=== PATIENT | female | born 1990 | race Caucasian/White ===

== ENCOUNTER 2017-06-02 17:37 | Emergency (ER) | payer MEDICAID ==
[~2017-06-02] VITALS: Ht 160 cm; Wt 98.1 kg
[~2017-06-02 17:37] MED LIST: ALBU0.0939 IH; BECL0.089 IH; FLUT1DSK2 IH; PRON INH
[2017-06-02 17:42] VITALS: BP 127/76
--- NOTE | 2017-06-02 18:24 | NUR ---
Patient ambulated to bed 5. RN evaluating patient at bedside.
[2017-06-02] MEDS ORDERED: ALBUTEROL 0.083% 2.5 MG/3 ML NEBU INH ONE ×2 (18:25→18:30)
[2017-06-02] MEDS ORDERED: IPRATROPIUM 0.02% 0.5 MG/2.5 ML NEBU INH ONE ×2 (18:25→18:30)
[2017-06-02] MEDS ORDERED: methylPREDNISolone SS 125 MG/2 ML VIAL IVP ONE (18:25)
[2017-06-02] MEDS ORDERED: MAG SULF 2000 MG/WATER PREMIX 50 ML IV ONE (18:25)
--- NOTE | 2017-06-02 18:30 | NUR ---
26F BIB SELF C/O ASTHMA EXACERBATION WITH COUGH X 2 WEEKS. HX: ASTHMA RX: QVAR, ALBUTEROL. DENIES N/V/D; SKIN IS PINK/WARM/DRY; AAOX4 WITH EVEN AND STEADY GAIT; LUNGS WHEEZING BL; PT DENIES ANY FEVER, CP, OR COUGH AT THIS TIME; PATIENT STATES HEADACHE ;PAIN OF 7/10 AT THIS TIME; PATIENT POSITIONED FOR COMFORT; HOB ELEVATED; BEDRAILS UP X2; BED DOWN. ER MD MADE AWARE OF PT STATUS.
--- NOTE | 2017-06-02 18:40 | NUR ---
Breathing treatment administered at bedside by respiratory therapist.
--- NOTE | 2017-06-02 19:19 | NUR ---
GAVE REPORT TO NATE RANGEL.
--- NOTE | 2017-06-02 19:23 | NUR ---
report received from glenroy cody
--- NOTE | 2017-06-02 19:34 | NUR ---
Respiratory Therapist at bedside for respiratory intervention.
--- NOTE | 2017-06-02 20:08 | NUR ---
DR. TEJEDA MAGNESIUM STILL ONGOING
--- NOTE | 2017-06-02 20:11 | NUR ---
magnesium sulfate infusing without problems. no c/o pain at this time. no resp. distress noted.
[2017-06-02 20:31] VITALS: BP 111/65
--- NOTE | 2017-06-02 20:31 | NUR ---
Patient discharged with v/s stable. Written and verbal after care instructions given and explained. Patient alert, oriented and verbalized understanding of instructions. Ambulatory with steady gait. All questions addressed prior to discharge. ID band removed. Patient advised to follow up with PMD. Rx of zithromax, prednisone and albuterol given. Patient educated on indication of medication including possible reaction and side effects. Opportunity to ask questions provided and answered.
== END 2017-06-02 20:31 | disposition home or self-care (01) ==
LOC: MED 17:37
DX: J44.1 Chronic obstructive pulmonary disease with (acute) exacerbation (principal); J45.901 Unspecified asthma with (acute) exacerbation; R03.0 Elevated blood-pressure reading, without diagnosis of hypertension; Z88.6 Allergy status to analgesic agent
CPT/HCPCS: 94640; 96365; 96366; 96375; 99285; J2930; J3475; J7613; J7644

== ENCOUNTER 2017-06-11 12:58 | Emergency (ER) | payer MEDICAID ==
[~2017-06-11] VITALS: Ht 162.6 cm; Wt 99.1 kg
[2017-06-11 13:05] VITALS: BP 114/61
[2017-06-11] MEDS ORDERED: ALBUTEROL SULFATE/IPRATROPIU 3 ML SOL IH ONE (13:15)
[2017-06-11] MEDS ORDERED: ALBUTEROL 0.083% 2.5 MG/3 ML NEBU INH ONE (13:15)
[2017-06-11] MEDS ORDERED: predniSONE 20 MG TAB PO ONE (13:15)
--- NOTE | 2017-06-11 13:25 | NUR ---
PT ON MED NEB TX VIA MP GIVEN BY LUCIA VILLANUEVA
--- NOTE | 2017-06-11 13:26 | NUR ---
PATIENT PRESENTS TO ED WITH c/o sob during night x 4 days---dry cough--full clear speech, no accessory muscle use noted at this time. seen in May 15June 02 asthma exacerbation hx---asthma rx----albuterol, Qvar 80, zyrtec DENIES N/V/D; SKIN IS PINK/WARM/DRY; AAOX4 WITH EVEN AND STEADY GAIT; LUNGS BL EXP WHZ; HR EVEN AND REGULAR; PT DENIES ANY FEVER, CP, OR COUGH AT THIS TIME; PATIENT STATES PAIN OF 0/10 AT THIS TIME; VSS; PATIENT POSITIONED FOR COMFORT; HOB ELEVATED; BEDRAILS UP X2; BED DOWN. ER MD MADE AWARE OF PT STATUS.
--- NOTE | 2017-06-11 13:28 | NUR ---
DR CARLOS EVALUATING AAO PT AT BEDSIDE
[2017-06-11 13:41] VITALS: BP 121/71
== END 2017-06-11 13:41 | disposition home or self-care (01) ==
LOC: MED 12:58
DX: J45.901 Unspecified asthma with (acute) exacerbation (principal); Z88.6 Allergy status to analgesic agent; Z90.49 Acquired absence of other specified parts of digestive tract
CPT/HCPCS: 81002; 81025; 94640; 99284; J7512; J7613; J7620

== ENCOUNTER 2017-06-29 09:02 | Emergency (ER) | payer OTHER ==
[~2017-06-29] VITALS: Ht 160 cm; Wt 97.5 kg
[2017-06-29 09:04] VITALS: BP 140/79
[2017-06-29] MEDS ORDERED: predniSONE 20 MG TAB PO ONE (09:15)
[2017-06-29] MEDS ORDERED: ALBUTEROL 0.083% 2.5 MG/3 ML NEBU INH ONE (09:15)
[2017-06-29] MEDS ORDERED: ALBUTEROL SULFATE/IPRATROPIU 3 ML SOL IH ONE (09:15)
[2017-06-29 09:47] VITALS: BP 156/77
== END 2017-06-29 09:44 | disposition home or self-care (01) ==
LOC: MED 09:02
DX: J45.901 Unspecified asthma with (acute) exacerbation (principal); Z90.89 Acquired absence of other organs; Z79.899 Other long term (current) drug therapy
CPT/HCPCS: 94640; 99283; J7512; J7613; J7620

== ENCOUNTER 2017-07-21 11:31 | Emergency (ER) | payer OTHER ==
[~2017-07-21] VITALS: Ht 162.6 cm; Wt 101.7 kg
[2017-07-21 11:36] VITALS: BP 110/69
--- NOTE | 2017-07-21 11:45 | NUR ---
PATIENT AMBULATED TO ER BED 8.
[2017-07-21] MEDS ORDERED: predniSONE 20 MG TAB PO ONE (11:50)
[2017-07-21] MEDS ORDERED: ALBUTEROL 0.083% 2.5 MG/3 ML NEBU INH ONE (11:50)
[2017-07-21] MEDS ORDERED: IPRATROPIUM 0.02% 0.5 MG/2.5 ML NEBU INH ONE (11:50)
--- NOTE | 2017-07-21 11:50 | NUR ---
PATIENT PRESENTS TO ED WITH C/O ASTHMA EXACERBATION X MAY 15, 2017 ON AND OFF LAST VISIT 06/29/2017 HERE----LAST PMD 07/09/2017 FOR ASTHMA EXACERBATION HX---ASTHMA, RX---ALBUTEROL, QVAR; DENIES N/V/D; SKIN IS PINK/WARM/DRY; AAOX4 WITH EVEN AND STEADY GAIT; LUNGS EXP WHEEZE BL; HR EVEN AND REGULAR; PT DENIES ANY FEVER, CP, SOB, OR COUGH AT THIS TIME; PATIENT STATES PAIN OF 0/10 AT THIS TIME; VSS; PATIENT POSITIONED FOR COMFORT; HOB ELEVATED; BEDRAILS UP X2; BED DOWN. ER MD MADE AWARE OF PT STATUS.
--- NOTE | 2017-07-21 11:50 | NUR ---
PATIENT BEING EVALUATED BY DR. REYNA.
[2017-07-21 13:12] VITALS: BP 112/71
== END 2017-07-21 13:12 | disposition home or self-care (01) ==
LOC: MED 11:31
DX: J45.901 Unspecified asthma with (acute) exacerbation (principal); Z88.6 Allergy status to analgesic agent
CPT/HCPCS: 94640; 99283; J7512; J7613; J7644

== ENCOUNTER 2017-07-25 10:01 | Emergency (ER) | payer OTHER ==
[~2017-07-25] VITALS: Ht 160 cm; Wt 102.6 kg
[2017-07-25 10:05] VITALS: BP 124/75
--- NOTE | 2017-07-25 10:08 | NUR ---
Patient ambulated to bed 5. RN evaluating patient at bedside.
--- NOTE | 2017-07-25 10:10 | NUR ---
26F BIB SELF C/O DIFFICULTY BREATHING X 2 WEEKS. HX: ASTHMA . DENIES N/V/D; SKIN IS PINK/WARM/DRY; AAOX4 WITH EVEN AND STEADY GAIT; LUNGS EXP WHEEZE BL; HR EVEN AND REGULAR; PT DENIES ANY FEVER, CP, SOB, OR COUGH AT THIS TIME; PATIENT STATES PAIN OF 0/10 AT THIS TIME; VSS; PATIENT POSITIONED FOR COMFORT; HOB ELEVATED; BEDRAILS UP X2; BED DOWN. ER MD MADE AWARE OF PT STATUS.
[2017-07-25] MEDS ORDERED: predniSONE 20 MG TAB PO ONE (10:15)
[2017-07-25] MEDS ORDERED: ALBUTEROL 0.083% 2.5 MG/3 ML NEBU INH ONE (10:15)
[2017-07-25] MEDS ORDERED: ALBUTEROL SULFATE/IPRATROPIU 3 ML SOL IH ONE (10:15)
--- NOTE | 2017-07-25 10:20 | NUR ---
Breathing treatment administered by respiratory therapist at bedside.
--- NOTE | 2017-07-25 10:23 | NUR ---
ADMITTING DX: DIFFICULTY BREATHING C/O SOB HX: ASTHMA AWAKE AND ALERT RESPONSIVE TO CABINET PROFESSIONAL VERBAL COMMANDS HFW POSITION EDUCATION PROVIDED TO PATIENT WITH ACKNOWLEDGEMENT ON [facility]N THERAPY AND RESPIRATORY DRUGS [facility] THERAPY GIVEN ORDERED ENCOURAGED PATIENT FOR DEEP BREATHING DURING THERAPY TOLERATED THERAPY WELL WITHOUT ADVERSE REACTIONS NOTED PEAK FLOW BEFORE TX 230 L; AFTER TX 330 L
--- NOTE | 2017-07-25 10:24 | NUR ---
Dr. James evaluating patient at bedside.
[2017-07-25 10:50] VITALS: BP 116/86
== END 2017-07-25 10:50 | disposition home or self-care (01) ==
LOC: MED 10:01
DX: J45.901 Unspecified asthma with (acute) exacerbation (principal); Z90.49 Acquired absence of other specified parts of digestive tract; Z79.899 Other long term (current) drug therapy
CPT/HCPCS: 94640; 99283; J7512; J7613; J7620

== ENCOUNTER 2017-08-08 20:58 | Emergency (ER) | payer OTHER ==
[~2017-08-08] VITALS: Ht 162.6 cm; Wt 104.4 kg
[2017-08-08 21:03] VITALS: BP 144/72
--- NOTE | 2017-08-08 21:54 | NUR ---
PT AMBULATED TO ER BED 08
--- NOTE | 2017-08-08 22:00 | NUR ---
Patient being evaluated by physician at bedside.
--- NOTE | 2017-08-08 22:00 | NUR ---
26Y/F PT. PRESNTES TO ED WITH C/O SORE THROAT X 1 DAY. PT. HX. ASTHMA, HAVING SORE THROAT, COUGH, LOW FEVER. AAO X4, AMBULATORY WITH STEADY GAIT. RESPIRATIONS ROOM AIR, EVEN AND UNLABORED. BL LUNG WHEEZING, O2 SAT 100%. ER MD MADE AWARE. C/O SORE THROAT. VSS, NO S/SX OF DISTRESS AT THIS TIME.
[2017-08-08] MEDS ORDERED: ALBUTEROL SULFATE/IPRATROPIU 3 ML SOL IH ONE (22:25)
[2017-08-08] MEDS ORDERED: DEXAMETHASONE 10 MG/ML VIAL IM ONE (22:25)
--- NOTE | 2017-08-08 23:00 | NUR ---
Patient discharged with v/s stable. Written and verbal after care instructions given and explained. Patient alert, oriented and verbalized understanding of instructions. Ambulatory with steady gait. All questions addressed prior to discharge. ID band removed. Patient advised to follow up with PMD. Rx of AUGMENTIN 875 MG, PREDNISONE 50 MG given. Patient educated on indication of medication including possible reaction and side effects. Opportunity to ask questions provided and answered.
[2017-08-08 23:16] VITALS: BP 153/93
== END 2017-08-08 23:00 | disposition home or self-care (01) ==
LOC: MED 20:58
DX: J45.901 Unspecified asthma with (acute) exacerbation (principal); Z88.6 Allergy status to analgesic agent
CPT/HCPCS: 81002; 81025; 94640; 96372; 99283; J1100; J7620

== ENCOUNTER 2018-02-17 20:16 | Emergency (ER) | payer OTHER ==
[~2018-02-17] VITALS: Ht 160 cm; Wt 104.3 kg
[2018-02-17 20:25] VITALS: BP 118/99
--- NOTE | 2018-02-17 20:31 | NUR ---
PT AMBULATED TO ER CHAIR C
--- NOTE | 2018-02-17 20:35 | NUR ---
Pt presents to ED with MCMANUS x1 day exacerbated by cough and cough x3 days with SOB. Pt evaluated upon ED arrival by Dr. Hui. Respiratory at chair side. VSS. Continue to monitor.
--- NOTE | 2018-02-17 20:36 | NUR ---
Patient being evaluated by physician at bedside.
[2018-02-17] MEDS ORDERED: ALBUTEROL SULFATE/IPRATROPIU 3 ML SOL IH ONE (20:40)
[2018-02-17] MEDS ORDERED: methylPREDNISolone SS 125 MG/2 ML VIAL IM ONE (20:40)
[2018-02-17] MEDS ORDERED: ALBUTEROL 0.083% 2.5 MG/3 ML NEBU INH ONE (21:05)
[2018-02-17] MEDS ORDERED: ACETAMINOPHEN EXTRA STRENGTH 500 MG TAB PO ONE (21:05)
[2018-02-17] MEDS ORDERED: PROCHLORPERAZINE 5 MG TAB PO ONE (21:10)
[2018-02-17 21:54] VITALS: BP 118/99
--- NOTE | 2018-02-17 21:54 | NUR ---
Patient discharged with v/s stable with decreased pain and no SOB. Written and verbal after care instructions given and explained. Patient alert, oriented and verbalized understanding of instructions. Ambulatory with steady gait. All questions addressed prior to discharge. ID band removed. Patient advised to follow up with PMD. Rx of Prednisone given. Patient educated on indication of medication including possible reaction and side effects. Opportunity to ask questions provided and answered.
== END 2018-02-17 21:54 | disposition home or self-care (01) ==
LOC: MED 20:16
DX: J45.901 Unspecified asthma with (acute) exacerbation (principal); R51 Headache; Z79.899 Other long term (current) drug therapy
CPT/HCPCS: 81002; 81025; 94640; 96372; 99284; J2930; J7613; J7620; Q0163; Q0164

== ENCOUNTER 2018-04-29 10:39 | Emergency (ER) | payer OTHER ==
[~2018-04-29] VITALS: Ht 162.6 cm; Wt 107.0 kg
[2018-04-29 10:48] VITALS: BP 119/74
--- NOTE | 2018-04-29 10:55 | NUR ---
Patient to rm 7 with steady gait. Gave report to Inderjit SULLIVAN.
--- NOTE | 2018-04-29 10:56 | NUR ---
27/F BIB SELF with c/o sob and dry, hacking cough x 2 wks.PT WENT TO ER [facility] 2 DAYS AGO & GOT COUGH MED.PT STATEED " MED DOES'T HELP".hx: asthmarx. DENIES N/V/D; SKIN IS PINK/WARM/DRY; AAOX4 WITH EVEN AND STEADY GAIT; LUNGS WHEEZING BL.HR TACHY. PATIENT STATES PAIN OF 0/10 AT THIS TIME. PATIENT POSITIONED FOR COMFORT; HOB ELEVATED; BEDRAILS UP X2; BED DOWN. ER MD MADE AWARE OF PT STATUS.
--- NOTE | 2018-04-29 11:02 | NUR ---
Patient being DR DOUGLAS by physician at bedside.
[2018-04-29] MEDS ORDERED: ALBUTEROL SULFATE/IPRATROPIU 3 ML SOL IH ONE (11:05)
[2018-04-29] MEDS ORDERED: CLINDAMYCIN 600 MG/4 ML VIAL IM ONE (11:05)
[2018-04-29] MEDS ORDERED: DEXAMETHASONE 10 MG/ML VIAL IM ONE (11:05)
[2018-04-29 12:48] VITALS: BP 119/66
--- NOTE | 2018-04-29 12:48 | NUR ---
Patient discharged with v/s stable. Written and verbal after care instructions given and explained. Patient alert, oriented and verbalized understanding of instructions. Ambulatory with steady gait. All questions addressed prior to discharge. ID band removed. Patient advised to follow up with PMD. Rx of PREDNISONE, CLINDAMYCIN& ALBUTEROL given. Patient educated on indication of medication including possible reaction and side effects. Opportunity to ask questions provided and answered.
== END 2018-04-29 12:48 | disposition home or self-care (01) ==
LOC: MED 10:39
DX: J44.9 Chronic obstructive pulmonary disease, unspecified (principal); J32.9 Chronic sinusitis, unspecified; Z88.8 Allergy status to other drugs, medicaments and biological substances
CPT/HCPCS: 81002; 81025; 94640; 96372; 99284; J1100; J3490; J7620

== ENCOUNTER 2018-05-11 04:36 | Emergency (ER) | payer OTHER ==
[~2018-05-11] VITALS: Ht 162.6 cm; Wt 107.7 kg
[2018-05-11 04:40] VITALS: BP 128/71
--- NOTE | 2018-05-11 04:40 | NUR ---
PATIENT TRIAGED. SENT TO ER LOBBY.
--- NOTE | 2018-05-11 05:37 | NUR ---
PATIENT PRESENTS TO ED WITH PT C/O OF COUGHING AND WHEEZING BILATERAL. PT FEELS TIGHTNESS IN CHEST. TOOK 2 BREATHING TREATMENTS PRIOR TO COMING TO ER. PT IS 1 MONTH . DENIES N/V/D; SKIN IS PINK/WARM/DRY; AAOX4 WITH EVEN AND STEADY GAIT; LUNGS WHEEZING BL; HR EVEN AND REGULAR; PT DENIES ANY FEVER, CP, SOB, OR COUGH AT THIS TIME; PATIENT STATES PAIN OF 0/10 AT THIS TIME; VSS; PATIENT POSITIONED FOR COMFORT; HOB ELEVATED; BEDRAILS UP X2; BED DOWN. ER MD MADE AWARE OF PT STATUS.
--- NOTE | 2018-05-11 05:37 | NUR ---
PT WAS PUT INTO BED 11
--- NOTE | 2018-05-11 07:13 | NUR ---
gave report to karey tim
[2018-05-11] MEDS ORDERED: ALBUTEROL SULFATE/IPRATROPIU 3 ML SOL IH ONE ×2 (07:40→09:10)
--- NOTE | 2018-05-11 07:48 | NUR ---
US tech at bedside.
[2018-05-11 08:05] LABS: BASOPHILS # (AUTO) 0.1 K/uL (0.00-0.22); BASOPHILS % (AUTO) 0.8 % (0.0-2.0); EOSINOPHILS % (AUTO) 7.3 % (0.0-4.0); HEMATOCRIT 39.2 % (36-48); HEMOGLOBIN 13.3 g/dL (12.0-16.0); LYMPHOCYTES # (AUTO) 2.4 K/uL (2.5-16.5); LYMPHOCYTES % (AUTO) 17.7 % (20.5-51.1); MEAN CORPUSCULAR HEMOGLOBIN 29 pg (27-31); MEAN CORPUSCULAR HGB CONC 34 g/dL (33-37); MEAN CORPUSCULAR VOLUME 85.1 fL (80-94); MONOCYTES # (AUTO) 0.9 K/uL (0.8-1.0); MONOCYTES % (AUTO) 6.8 % (1.7-9.3); NEUTROPHILS % (AUTO) 67.4 % (42.2-75.2); PLATELET COUNT (AUTO) 255 K/uL (140-450); RED CELL DISTRIBUTION WIDTH 13.9 % (11.6-13.7); WHITE BLOOD COUNT (AUTO) 13.4 K/uL (4.8-10.8)
[2018-05-11 08:07] LABS: APPEARANCE,URINE CLEAR (CLEAR); BILIRUBIN,URINE NEGATIVE (NEGATIVE); BLOOD, URINE TRACE-I (NEGATIVE); COLOR,URINE YELLOW (YELLOW); LEUKOCYTE ESTERASE ,URINE NEGATIVE (NEGATIVE); NITRITE, URINE NEGATIVE (NEGATIVE); PH,URINE 5.5 (5.0-9.0); UGLUCOSE NEGATIVE (NEGATIVE)
[2018-05-11 08:17] LABS: RBC,URINE 0-5 (RARE) /HPF (0-5); WBC,URINE 0-5 (RARE) /HPF (0-5)
[2018-05-11 08:27] LABS: ANION GAP 16.5 (8-16); CARBON DIOXIDE 22.2 mmol/L (21-32); CREATININE 0.6 mg/dL (0.6-1.3); POTASSIUM 3.7 mmol/L (3.5-5.1)
--- NOTE | 2018-05-11 09:00 | NUR ---
PT RESTING IN BED WITH EVEN AND UNLABORED BREATHING.
--- NOTE | 2018-05-11 10:41 | NUR ---
Patient appears to be resting comfortably in bed. Vital Signs within normal limits. Respirations even and unlabored.
--- NOTE | 2018-05-11 11:10 | NUR ---
PT RECIEVED 1ST DOSE OF RHOGRAM IM GIVEN IN LEFT DELTOID. NO REACTIONS.
[2018-05-11 11:21] VITALS: BP 121/47
--- NOTE | 2018-05-11 11:21 | NUR ---
Patient discharged with v/s stable. Written and verbal after care instructions given and explained. Patient alert, oriented and verbalized understanding of instructions. Ambulatory with steady gait. All questions addressed prior to discharge. ID band removed. Patient advised to follow up with PMD. Rx of ATROVENT given. Patient educated on indication of medication including possible reaction and side effects. Opportunity to ask questions provided and answered.
== END 2018-05-11 11:21 | disposition home or self-care (01) ==
LOC: MED 04:36
DX: O99.511 Diseases of the respiratory system complicating pregnancy, first trimester (principal); J45.901 Unspecified asthma with (acute) exacerbation; R03.0 Elevated blood-pressure reading, without diagnosis of hypertension; Z3A.01 Less than 8 weeks gestation of pregnancy
CPT/HCPCS: 36415; 36430; 76801; 80048; 81001; 81025; 84702; 85025; 86886; 86900; 86901; 94640; 99285; J2790; J7620

== ENCOUNTER 2018-08-31 06:16 | Emergency (ER) | payer OTHER ==
[~2018-08-31] VITALS: Ht 160 cm; Wt 104.3 kg
[2018-08-31 06:16] VITALS: BP 125/72
--- NOTE | 2018-08-31 06:16 | NUR ---
PATIENT BIB WHEELCHAIR TO ER BED 11.
--- NOTE | 2018-08-31 06:16 | NUR ---
27/F C/O ASTHMA X3 DAYS AGO, WORSENED YESTERDAY.I/E WHEEZING NOTED TO ALL LUNG SOUNDS. 98%RA, 16RR EVEN AND MILD LABORED BREATHING. ALSO REPORTS PRODUCIVE COUGH. PT REPORTS TO HAVE BEEN TAKING BREATHING TREATMENTS WITHOUT IMPROVEMENT. IUP 5 MONTHS, . PMH: ASTHMA
[2018-08-31] MEDS ORDERED: ALBUTEROL SULFATE/IPRATROPIU 3 ML SOL IH ONE ×4 (06:20→07:20)
--- NOTE | 2018-08-31 06:38 | NUR ---
Breathing treatment administered at bedside by respiratory therapist.
[2018-08-31] MEDS ORDERED: MAG SULF 2000 MG/WATER PREMIX 50 ML IV ONE ×2 (06:50→07:03)
[2018-08-31] MEDS ORDERED: ALBUTEROL 0.083% 2.5 MG/3 ML NEBU INH ONE ×4 (06:50→08:57)
--- NOTE | 2018-08-31 06:54 | NUR ---
Secondary breathing treatment administered by respiratory therapist.
--- NOTE | 2018-08-31 07:04 | NUR ---
L&D RN PERFOREMED FHR ASSESSSMENT, FHR IN 150'S
--- NOTE | 2018-08-31 07:55 | NUR ---
WAS NOT ABLE TO SCAN PROVENTIL MEDICATION AT THE TIME OF ADMINISTRATION BECAUSE [employer] WAS NOT RESPONDING.
[2018-08-31] MEDS ORDERED: DEXAMETHASONE 10 MG/ML VIAL IVP ONE (08:35)
[2018-08-31] MEDS ORDERED: DEXAMETHASONE 4 MG/ML VIAL ONE (08:39)
[2018-08-31 09:45] VITALS: BP 119/63
--- NOTE | 2018-08-31 09:45 | NUR ---
Patient discharged with v/s stable. Written and verbal after care instructions given and explained. Patient alert, oriented and verbalized understanding of instructions. Ambulatory with steady gait. All questions addressed prior to discharge. ID band removed. Patient advised to follow up with PMD. Rx of qvar, azithromycin, albuterol given. Patient educated on indication of medication including possible reaction and side effects. Opportunity to ask questions provided and answered.
== END 2018-08-31 09:45 | disposition home or self-care (01) ==
LOC: MED 06:16
DX: O99.512 Diseases of the respiratory system complicating pregnancy, second trimester (principal); J45.901 Unspecified asthma with (acute) exacerbation; Z88.6 Allergy status to analgesic agent; Z79.899 Other long term (current) drug therapy; Z3A.21 21 weeks gestation of pregnancy
CPT/HCPCS: 94640; 94760; 96365; 96375; 99285; J1100; J3475; J7613; J7620

== ENCOUNTER 2018-09-04 14:17 | Emergency (ER) | payer OTHER ==
[~2018-09-04] VITALS: Ht 160 cm; Wt 112.9 kg
[2018-09-04 14:23] VITALS: BP 120/71
--- NOTE | 2018-09-04 15:00 | NUR ---
pt ambulated to bed 4
--- NOTE | 2018-09-04 15:15 | NUR ---
27YO F TO ER BIB SELF WITH C/O ASTHMA EXACERBATION. WHEEZING THROUGHOUT WITH AUSCALTATION, PT STATES SOB WITH WALKING AND LONG CONVERSATIONS, PT DENIES ANY CP, ABD PAIN, FEVERS, - N/V/D AT THIS TIME WILL CONTINUE TO MONITOR =ER MD MADE AWARE.
--- NOTE | 2018-09-04 15:53 | NUR ---
HEART TONES: 150. ER MD CARDENAS NOTIFIED.
[2018-09-04] MEDS ORDERED: ALBUTEROL 0.083% 2.5 MG/3 ML NEBU INH ONE (15:55)
[2018-09-04] MEDS ORDERED: predniSONE 20 MG TAB PO ONE (15:55)
--- NOTE | 2018-09-04 17:00 | NUR ---
PT. IN BED, RR EVEN AND UNLABORED. VSS. WILL CONTINUE TO MONITOR.
[2018-09-04 17:18] VITALS: BP 122/74
== END 2018-09-04 17:18 | disposition home or self-care (01) ==
LOC: MED 14:17
DX: O99.512 Diseases of the respiratory system complicating pregnancy, second trimester (principal); J45.901 Unspecified asthma with (acute) exacerbation; Z3A.21 21 weeks gestation of pregnancy; Z88.6 Allergy status to analgesic agent; Z79.899 Other long term (current) drug therapy
CPT/HCPCS: 71046; 99284; J7512; J7613

== ENCOUNTER 2018-09-30 12:50 | Emergency (ER) | payer OTHER ==
[~2018-09-30] VITALS: Ht 162.6 cm; Wt 114.9 kg
[2018-09-30 13:02] VITALS: BP 150/67
--- NOTE | 2018-09-30 13:05 | NUR ---
DR CARLOS NOTIFIED, PT AMBULATES BACK TO THE LOBBY PER
--- NOTE | 2018-09-30 14:09 | NUR ---
PT AMBULATED TO ER BED 02
--- NOTE | 2018-09-30 14:10 | NUR ---
27/F C/O INTERMITTENT LT SIDED CHEST PAIN X 1 WK, C/O COUGH X 2 DAYS. 6 MONTHS ; LMP 04/06/18; .DENIES N/V/D; SKIN IS PINK/WARM/DRY; AAOX4 WITH EVEN AND STEADY GAIT; LUNGS CLEAR BL; HR EVEN AND REGULAR; PT DENIES ANY FEVER, CP, SOB, AT THIS TIME; PATIENT STATES PAIN OF 0/10 AT THIS TIME; PATIENT POSITIONED FOR COMFORT; HOB ELEVATED; BEDRAILS UP X2; BED DOWN. ER MD MADE AWARE OF PT STATUS.
[2018-09-30 17:39] VITALS: BP 119/56
--- NOTE | 2018-09-30 17:39 | NUR ---
Patient discharged with v/s stable. Written and verbal after care instructions given and explained. Patient verbalized understanding. Ambulatory with steady gait. All questions addressed prior to discharge. Advised to follow up with PMD.
== END 2018-09-30 17:39 | disposition home or self-care (01) ==
LOC: MED 12:50
DX: O26.892 Other specified pregnancy related conditions, second trimester (principal); R07.9 Chest pain, unspecified; R06.02 Shortness of breath; J45.909 Unspecified asthma, uncomplicated; Z3A.25 25 weeks gestation of pregnancy; Z88.8 Allergy status to other drugs, medicaments and biological substances; Z79.899 Other long term (current) drug therapy; Z90.49 Acquired absence of other specified parts of digestive tract
CPT/HCPCS: 81002; 81025; 99283

== ENCOUNTER 2019-02-14 10:25 | Emergency (ER) | payer OTHER ==
[~2019-02-14] VITALS: Ht 162.6 cm; Wt 106.8 kg
[2019-02-14 10:30] VITALS: BP 150/83
--- NOTE | 2019-02-14 10:36 | NUR ---
PATIENT AMBULATED TO ER BED 5
--- NOTE | 2019-02-14 10:38 | NUR ---
PATIENT PRESENTS TO ED WITH C/O SOB X1 MONTH TOOK PREDINISON AND BREATHING TREATMENT AT HOME. RR EVEN, NON-LABORED, EXPIRATORY WHEEZES THROUGHOUT. MEDHX:ASTHMA . DENIES PAIN, VSS; PATIENT POSITIONED FOR COMFORT; HOB ELEVATED; BEDRAILS UP X2; BED DOWN. ER MD MADE AWARE OF PT STATUS.
[2019-02-14] MEDS ORDERED: ALBUTEROL SULFATE/IPRATROPIU 3 ML SOL IH ONE ×2 (10:40→12:50)
--- NOTE | 2019-02-14 10:40 | NUR ---
Patient being evaluated by physician at bedside.
[2019-02-14] MEDS ORDERED: predniSONE 20 MG TAB PO ONE (10:45)
--- NOTE | 2019-02-14 10:53 | NUR ---
RT AT BEDSIDE GIVING BREATHING TREATMENT.
--- NOTE | 2019-02-14 12:58 | NUR ---
RT AT BEDSIDE GIVING BREATHING TREATMENT
--- NOTE | 2019-02-14 13:36 | NUR ---
Patient discharged with v/s stable. Written and verbal after care instructions given and explained. Patient alert, oriented and verbalized understanding of instructions. even and unlobored breathing. All questions addressed prior to discharge. ID band removed. Patient advised to follow up with PMD. Rx of prednisone given. Patient educated on indication of medication including possible reaction and side effects. Opportunity to ask questions provided and answered.
[2019-02-14 13:37] VITALS: BP 139/89
== END 2019-02-14 13:36 | disposition home or self-care (01) ==
LOC: MED 10:25
DX: J45.901 Unspecified asthma with (acute) exacerbation (principal); Z88.8 Allergy status to other drugs, medicaments and biological substances; Z79.899 Other long term (current) drug therapy
CPT/HCPCS: 94640; 99284; J7512; J7620

== ENCOUNTER 2019-04-13 08:26 | Emergency (ER) | payer OTHER ==
[~2019-04-13] VITALS: Ht 162.6 cm; Wt 65.3 kg
[2019-04-13 08:35] VITALS: BP 129/67
--- NOTE | 2019-04-13 08:40 | NUR ---
Patient ambulated to bed 7 with family. RN evaluating patient at bedside.
--- NOTE | 2019-04-13 08:40 | NUR ---
BIB . PT AAO X4 C/O LOWER BACK 610 PAIN X 3 DAYS. PT DENIES TRAUMA AND INJURY. PT TOOK TYLENOL 1000 MG LAST NIGHT WITH MILD RELIEF. PT HAS LIDOCAINE PATCH ON LOWER BACK. PT DENIES N/V, FEVER, SOB. PT HAS STEADY GAIT. HOB UP. BED SIDE RAILS UP X1. ON LOW BED POSITION, LOCKED. ER TO EVALUATE PT.
--- NOTE | 2019-04-13 08:59 | NUR ---
DR DOUGLAS AT BEDSIDE FOR PT EVALUATION
[2019-04-13] MEDS ORDERED: MORPHINE SULFATE 4 MG/ML SYR IM ONE (09:10)
[2019-04-13] MEDS ORDERED: diphenhydrAMINE 50 MG/ML VIAL IM ONE (09:10)
[2019-04-13 09:14] LABS: APPEARANCE,URINE CLEAR (CLEAR); BILIRUBIN,URINE NEGATIVE (NEGATIVE); BLOOD, URINE NEGATIVE (NEGATIVE); COLOR,URINE YELLOW (YELLOW); LEUKOCYTE ESTERASE ,URINE NEGATIVE (NEGATIVE); NITRITE, URINE NEGATIVE (NEGATIVE); UGLUCOSE NEGATIVE (NEGATIVE)
[2019-04-13 09:20] LABS: BARBITURATE, URINE NEG. ng/ml (NEG <=200); BENZODIAZEPINE, URINE NEG. ng/mL (NEG <=200); CANNABINOID, URINE NEG. ng/mL (NEG <=50); COCAINE, URINE NEG. ng/mL (NEG <=300); OPIATE, URINE NEG. ng/mL (NEG <=2000); PHENCYCLIDINE SCREEN,URINE NEG. ng/mL (NEG <=25)
[2019-04-13 11:23] VITALS: BP 120/72
--- NOTE | 2019-04-13 11:23 | NUR ---
Patient discharged with v/s stable. Written and verbal after care instructions given and explained. Patient alert, oriented and verbalized understanding of instructions. Ambulatory with steady gait. All questions addressed prior to discharge. ID band removed. Patient advised to follow up with PMD. Rx of Tramadol 50mg given. Patient educated on indication of medication including possible reaction and side effects. Opportunity to ask questions provided and answered.
== END 2019-04-13 11:12 | disposition home or self-care (01) ==
LOC: MED 08:26
DX: M54.5 Low back pain (principal); H66.92 Otitis media, unspecified, left ear; J45.909 Unspecified asthma, uncomplicated; Z79.899 Other long term (current) drug therapy
CPT/HCPCS: 80305; 81003; 81025; 96372; 99283; J1200; J2270

== ENCOUNTER 2019-12-02 20:55 | Emergency (ER) | payer OTHER ==
[~2019-12-02] VITALS: Ht 162.6 cm; Wt 113.4 kg
[2019-12-02 21:05] VITALS: BP 141/81
[2019-12-02] MEDS: DEXAMETHASONE 10 MG/ML VIAL IM ONE (22:06)
[2019-12-02 22:42] VITALS: BP 141/81
[2019-12-03 00:08] LABS: APPEARANCE,URINE CLOUDY (CLEAR); BILIRUBIN,URINE NEGATIVE (NEGATIVE); BLOOD, URINE NEGATIVE (NEGATIVE); COLOR,URINE YELLOW (YELLOW); LEUKOCYTE ESTERASE ,URINE NEGATIVE (NEGATIVE); NITRITE, URINE NEGATIVE (NEGATIVE); UGLUCOSE NEGATIVE (NEGATIVE)
== END 2019-12-02 22:42 | disposition home or self-care (01) ==
LOC: MED 20:55
DX: J06.9 Acute upper respiratory infection, unspecified (principal); J45.909 Unspecified asthma, uncomplicated; Z90.49 Acquired absence of other specified parts of digestive tract; Z88.6 Allergy status to analgesic agent; Z79.899 Other long term (current) drug therapy
CPT/HCPCS: 81003; 96372; 99283; J1100

== ENCOUNTER 2020-09-04 11:28 | Emergency (ER) | payer OTHER ==
[~2020-09-04] VITALS: Ht 162.6 cm; Wt 108.6 kg
[2020-09-04 11:32] VITALS: BP 133/80
--- NOTE | 2020-09-04 11:42 | NUR ---
/ C/O ANTERIOR CHAIREZ PAIN, L>R X TODAY. STATES SHINS ARE VERY SENSITIVE WHEN PALPATED. NO CALF PAIN. NO SWELLING OR ERYTHEMA. PT HAD GASTRIC SLEEVE SURGERY 08/31/20, CALLED SURGEON AND WAS INSTRUCTED TO GO TO ER DUE TO POSSIBILITY OF BLOOD CLOTS. NO CP OR SOB. VSS. AMBULATORY STEADY GAIT. NAD. PT STATES PAIN MILD 02/26 NOW, REFUSING PAIN MEDS. MED HX: ASTHMA,GASTRIC SLEEVE SURGERY Addendum: 09/04/20 at 1205 by YEIMI RIGHT CHAIREZ MORE PAINFUL/SORE THAN LEFT CHAIREZ
--- NOTE | 2020-09-04 11:45 | NUR ---
DR. GIRALDO EVALUATING PT AT BEDSIDE
--- NOTE | 2020-09-04 12:03 | NUR ---
U/S TECH AT BEDSIDE
[2020-09-04 13:29] VITALS: BP 133/80
== END 2020-09-04 13:29 | disposition home or self-care (01) ==
LOC: MED 11:28
DX: M79.662 Pain in left lower leg (principal); M79.661 Pain in right lower leg; R60.9 Edema, unspecified; J45.909 Unspecified asthma, uncomplicated; Z98.84 Bariatric surgery status; Z79.899 Other long term (current) drug therapy
CPT/HCPCS: 93970; 99284; Q0092

== ENCOUNTER 2021-08-07 03:34 | Emergency (ER) | payer OTHER ==
[~2021-08-07] VITALS: Ht 162.6 cm; Wt 82.3 kg
[~2021-08-07 03:34] MED LIST changes: +ACET-2619 PO; +NITR100C7 PO
[2021-08-07 03:39] VITALS: BP 125/94
--- NOTE | 2021-08-07 03:43 | NUR ---
PT TAKEN TO CHAIR
--- NOTE | 2021-08-07 03:56 | NUR ---
C/O RASH TO BODY X 1 DAYS S/P MASSAGE FOR BBL,TUMMY TUCK, ARMS. MODERATE TO LARGE WELTS TO TORSO-RED, WARM TO TOUCH, STS-"VERY ITCHY-NO SOB, NO CP. PAIN 05/28 PT HAD PLASTIC SURGERY IN [facility] 2 WEEKS AGO. BILAT DRAINS TO ABD NOTED WITH BILAT CLEAN DRY AND INTACT BANDAGES TO LOWER ARM. ER AT [facility] FOR MATTY[facility]
[2021-08-07] MEDS ORDERED: predniSONE 20 MG TAB PO ONE (04:00)
[2021-08-07] MEDS ORDERED: FAMOTIDINE 20 MG TAB PO ONE (04:00)
[2021-08-07] MEDS ORDERED: FAMO-90 PO (04:05)
[2021-08-07] MEDS ORDERED: EPIN1KIT31 IM (04:05)
[2021-08-07] MEDS ORDERED: PRED20TA5 PO (04:05)
--- NOTE | 2021-08-07 04:14 | NUR ---
PO MEDS GIVEN-NADR AT THIS TIME
--- NOTE | 2021-08-07 04:34 | NUR ---
Patient discharged with v/s stable. Written and verbal after care instructions given and explained. Patient alert, oriented and verbalized understanding of instructions. Ambulatory with steady gait. All questions addressed prior to discharge. ID band removed. Patient advised to follow up with PMD. Rx of EPIPEN, PEPCID,DELTASONE given. Patient educated on indication of medication including possible reaction and side effects. Opportunity to ask questions provided and answered.
[2021-08-07 04:35] VITALS: BP 122/90
== END 2021-08-07 04:34 | disposition home or self-care (01) ==
LOC: MED 03:34
DX: L50.0 Allergic urticaria (principal); J45.909 Unspecified asthma, uncomplicated; Z79.899 Other long term (current) drug therapy; Z98.890 Other specified postprocedural states
CPT/HCPCS: 99283; J7512

== ENCOUNTER 2021-08-12 20:42 | Emergency (ER) | payer OTHER ==
[~2021-08-12] VITALS: Ht 162.6 cm; Wt 78.5 kg
[~2021-08-12 20:42] MED LIST changes: +EPIN1KIT31 IM; +FAMO-90 PO; +PRED20TA5 PO
[2021-08-12 20:53] VITALS: BP 132/100
--- NOTE | 2021-08-12 20:56 | NUR ---
to lobby a/w bed ambulatory
[2021-08-12 22:21] LABS: BASOPHILS # (AUTO) 0.1 K/uL (0.00-0.22); BASOPHILS % (AUTO) 0.9 % (0.0-2.0); EOSINOPHILS # (AUTO) 1.1 K/uL (0-0.4); EOSINOPHILS % (AUTO) 13.7 % (0.0-4.0); HEMATOCRIT 33.9 % (36-48); LYMPHOCYTES # (AUTO) 2.4 K/uL (2.5-16.5); LYMPHOCYTES % (AUTO) 30.6 % (20.5-51.1); MEAN CORPUSCULAR HEMOGLOBIN 29 pg (27-31); MEAN CORPUSCULAR HGB CONC 33 g/dL (33-37); MEAN CORPUSCULAR VOLUME 88.5 fL (80-94); MONOCYTES # (AUTO) 0.9 K/uL (0.8-1.0); MONOCYTES % (AUTO) 11.2 % (1.7-9.3); NEUTROPHILS # (AUTO) 3.5 K/uL (1.8-7.7); NEUTROPHILS % (AUTO) 43.6 % (42.2-75.2); PLATELET COUNT (AUTO) 461 K/uL (140-450); RED BLOOD CELL COUNT(AUTO) 3.83 MIL/uL (4.20-5.40); RED CELL DISTRIBUTION WIDTH 14.1 % (11.6-13.7); WHITE BLOOD COUNT (AUTO) 7.9 K/uL (4.8-10.8)
[2021-08-12] MEDS ORDERED: LOPERAMIDE 2 MG CAP PO ONE (22:35)
[2021-08-12 22:50] LABS: ALBUMIN 3.4 g/dL (3.4-5.0); ANION GAP 13.2 (8-16); CARBON DIOXIDE 28.6 mmol/L (21-32); CREATININE 0.7 mg/dL (0.6-1.3); POTASSIUM 3.8 mmol/L (3.5-5.1); TOTAL BILIRUBIN 0.2 mg/dL (0.0-1.0)
--- NOTE | 2021-08-12 22:59 | NUR ---
patient ambulated to bed 8.
--- NOTE | 2021-08-12 22:59 | NUR ---
PT AMBULATED UNASSISTED TO ER BED 08 WITH STEADY GAIT
--- NOTE | 2021-08-13 00:21 | NUR ---
Female Wellness Specialist accompanied female patient for Rectal Exam.
[2021-08-13] MEDS ORDERED: LOPE1TAB14 PO (00:25)
[2021-08-13 00:39] VITALS: BP 132/100
== END 2021-08-13 00:39 | disposition home or self-care (01) ==
LOC: MED 20:42
DX: K52.9 Noninfective gastroenteritis and colitis, unspecified (principal)
CPT/HCPCS: 36415; 80053; 85025; 99283

== ENCOUNTER 2022-08-15 09:07 | Emergency (ER) | payer OTHER ==
[~2022-08-15] VITALS: Ht 162.6 cm; Wt 85.7 kg
[~2022-08-15 09:07] MED LIST changes: +LOPE1TAB14 PO
--- NOTE | 2022-08-15 09:13 | NUR ---
PT CALLED TO TRIAGE, CURRENTLY IN BATHROOM
[2022-08-15 09:18] VITALS: BP 132/76
--- NOTE | 2022-08-15 09:28 | NUR ---
PT AMBULATED TO BATHROOM
--- NOTE | 2022-08-15 10:11 | NUR ---
Obtained Flu and VICTOR MANUEL specimens, handed to CPT Alyssa at bedside.
[2022-08-15] MEDS ORDERED: predniSONE 20 MG TAB PO ONE (11:25)
[2022-08-15] MEDS ORDERED: ALBUTEROL 0.083% 2.5 MG/3 ML NEBU INH ONE (11:25)
--- NOTE | 2022-08-15 11:47 | NUR ---
RT at bedside.
[2022-08-15] MEDS ORDERED: PRED20TA6 PO (11:52)
[2022-08-15] MEDS ORDERED: SPAC1DEV MC (11:52)
[2022-08-15] MEDS ORDERED: IBUP-2213 PO (11:52)
[2022-08-15] MEDS ORDERED: ALBU0.0912 INH (11:52)
--- NOTE | 2022-08-15 12:00 | NUR ---
Dr. Hackett re-evaluating patient at bedside.
[2022-08-15 12:09] VITALS: BP 121/62
--- NOTE | 2022-08-15 12:09 | NUR ---
Patient discharged with v/s stable. Written and verbal after care instructions given. Patient alert, oriented and verbalized understanding of instructions. Ambulatory with steady gait. All questions addressed prior to discharge. ID band removed. Patient advised to follow up with PMD. Rx of Albuterol Sulfate, Ibuprofen, Prednisone and Inhaler given. Opportunity to ask questions provided and answered. WORK NOTE HANDED TO PATIENT.
--- NOTE | 2022-08-15 12:22 | NUR ---
The patient's care was reviewed and supervised by Flaquita Obrien RN.
== END 2022-08-15 12:09 | disposition home or self-care (01) ==
LOC: MED 09:07
DX: J45.901 Unspecified asthma with (acute) exacerbation (principal); Z20.822 Contact with and (suspected) exposure to COVID-19; Z79.1 Long term (current) use of non-steroidal anti-inflammatories (NSAID); Z88.5 Allergy status to narcotic agent; Z88.8 Allergy status to other drugs, medicaments and biological substances; Z79.82 Long term (current) use of aspirin
CPT/HCPCS: 87426; 87804; 94640; 94760; 99283; J7512; J7613

== ENCOUNTER 2022-10-09 17:26 | Emergency (ER) | payer OTHER ==
[~2022-10-09 17:26] MED LIST changes: +ALBU0.0912 INH; +IBUP-2213 PO; +PRED20TA6 PO; +SPAC1DEV MC
--- NOTE | 2022-10-09 19:27 | NUR ---
PT CALLED IN LOBBY AND OUTSIDE [facility] NO ANSWER. PT LWBS
== END 2022-10-09 19:27 | disposition left against medical advice (07) ==
LOC: MED 17:26
DX: R07.9 Chest pain, unspecified (principal); Z53.21 Procedure and treatment not carried out due to patient leaving prior to being seen by health care provider

== ENCOUNTER 2022-10-18 07:25 | Emergency (ER) | payer OTHER ==
[~2022-10-18] VITALS: Ht 162.6 cm; Wt 85.7 kg
[2022-10-18 07:27] VITALS: BP 107/61
--- NOTE | 2022-10-18 07:48 | NUR ---
Dr. Mack evaluating patient at bedside.
[2022-10-18] MEDS ORDERED: IPRATROPIUM 0.02% 0.5 MG/2.5 ML NEBU INH ONE (07:50)
[2022-10-18] MEDS ORDERED: ALBUTEROL 0.083% 2.5 MG/3 ML NEBU INH ONE (07:50)
[2022-10-18] MEDS ORDERED: DEXAMETHASONE 10 MG/ML VIAL IM ONE (07:50)
[2022-10-18] MEDS ORDERED: FAMOTIDINE 20 MG TAB PO ONE (07:50)
--- NOTE | 2022-10-18 07:56 | NUR ---
Nuris nunez in [facility] - 10/18/22 at 0757 by [facility] at bedside.
--- NOTE | 2022-10-18 08:16 | NUR ---
Obtained VICTOR MANUEL and Flu specimens, walked to lab.
--- NOTE | 2022-10-18 08:20 | NUR ---
RT at bedside.
--- NOTE | 2022-10-18 08:29 | NUR ---
31 y/o female bib self with c/o SOB and coughx 2 weeks. Patient denies any fever or pain. Per patient, her kids were sick last month. Patient has been having ongoing asthma symptoms for 2 weeks. Patient has a productive cough. Patient is also noted with rash to her bilateral breasts. Medical History: Asthma ALLERGY: NSAIDS, MEDICAL TAPE, CIPRO, LEVAQUIN, NSAIDS, CLINDAMYCIN
[2022-10-18] MEDS ORDERED: EPIN1KIT31 IM (09:05)
[2022-10-18 09:22] VITALS: BP 129/75
--- NOTE | 2022-10-18 09:22 | NUR ---
Patient discharged with v/s stable. Written and verbal after care instructions given. Patient alert, oriented and verbalized understanding of instructions. Ambulatory with steady gait. All questions addressed prior to discharge. ID band removed. Patient advised to follow up with PMD. Rx of Epinephrine given. Opportunity to ask questions provided and answered.
--- NOTE | 2022-10-18 09:28 | NUR ---
The patient's care was reviewed and supervised by [place] [facility] ED, RN.
== END 2022-10-18 09:22 | disposition home or self-care (01) ==
LOC: MED 07:25
DX: T78.40XA Allergy, unspecified, initial encounter (principal); Z20.822 Contact with and (suspected) exposure to COVID-19; J45.901 Unspecified asthma with (acute) exacerbation; X58.XXXA Exposure to other specified factors, initial encounter
CPT/HCPCS: 87426; 87804; 94640; 94760; 96372; 99283; J1100; J7613; J7644

== ENCOUNTER 2023-01-19 19:33 | Emergency (ER) | payer OTHER ==
[~2023-01-19] VITALS: Ht 160 cm; Wt 86.2 kg
[2023-01-19 19:40] VITALS: BP 123/76
--- NOTE | 2023-01-19 19:40 | NUR ---
to bed ambulatory
[2023-01-19] MEDS ORDERED: DICYCLOMINE 10 MG CAP PO ONE (20:00)
[2023-01-19] MEDS ORDERED: ALUMINUM HYD/MAG/SIMETHICONE 30 ML UDC PO ONE (20:00)
[2023-01-19] MEDS ORDERED: ONDANSETRON 4 MG ODT PO ONE (20:00)
[2023-01-19 20:23] LABS: BASOPHILS % (AUTO) 0.4 % (0.0-2.0); EOSINOPHILS # (AUTO) 0.1 K/uL (0-0.4); EOSINOPHILS % (AUTO) 1.1 % (0.0-4.0); HEMATOCRIT 35.9 % (36-48); LYMPHOCYTES # (AUTO) 2.9 K/uL (2.5-16.5); LYMPHOCYTES % (AUTO) 23.2 % (20.5-51.1); MEAN CORPUSCULAR HEMOGLOBIN 27 pg (27-31); MEAN CORPUSCULAR HGB CONC 34 g/dL (33-37); MEAN CORPUSCULAR VOLUME 81.1 fL (80-94); MONOCYTES # (AUTO) 1.2 K/uL (0.8-1.0); MONOCYTES % (AUTO) 9.4 % (1.7-9.3); NEUTROPHILS # (AUTO) 8.4 K/uL (1.8-7.7); NEUTROPHILS % (AUTO) 65.9 % (42.2-75.2); PLATELET COUNT (AUTO) 293 K/uL (140-450); RED BLOOD CELL COUNT(AUTO) 4.42 MIL/uL (4.20-5.40); RED CELL DISTRIBUTION WIDTH 14.4 % (11.6-13.7); WHITE BLOOD COUNT (AUTO) 12.7 K/uL (4.8-10.8)
[2023-01-19 20:30] LABS: APPEARANCE,URINE CLEAR (CLEAR); BILIRUBIN,URINE 1+ (NEGATIVE); BLOOD, URINE TRACE-I (NEGATIVE); COLOR,URINE YELLOW (YELLOW); LEUKOCYTE ESTERASE ,URINE NEGATIVE (NEGATIVE); NITRITE, URINE NEGATIVE (NEGATIVE); UGLUCOSE NEGATIVE (NEGATIVE)
--- NOTE | 2023-01-19 20:36 | NUR ---
32YR OLD FEMALE BIB SELF C/O ABD PAIN X2days. PT IS A&OX4. DENIES SOB OR CP. ALSO HAVING LOW BACK PAIN NON RADIATING PAIN. SHARP /CRAMPING 9/10 NON CONSISENT PAIN. DENIES URINATION PAIN OR VAG BLEEDING. LMP 01/02/23. HOB ELEVTED WITH BED AT LOWEST POSITION SIDE RAILS UP X1. 20G IV CATH PLACED IN L AC WITH LABS OBTAINED . URINE PREG NEG. URINE SENT TO LAB NSAIDS CLINYADMCYIN
[2023-01-19 20:43] LABS: ANION GAP 11.7 (8-16); CARBON DIOXIDE 27.8 mmol/L (21-32); CREATININE 0.6 mg/dL (0.6-1.3); POTASSIUM 3.5 mmol/L (3.5-5.1)
[2023-01-19 20:53] LABS: ALBUMIN 3.3 g/dL (3.4-5.0); TOTAL BILIRUBIN 0.6 mg/dL (0.0-1.0)
[2023-01-19 21:01] LABS: RBC,URINE 0-5 /HPF (0-5); WBC,URINE NONE SEEN /HPF (0-5)
[2023-01-19] MEDS ORDERED: ONDA-188 SL (21:09)
[2023-01-19] MEDS ORDERED: BEN10 PO (21:09)
[2023-01-19] MEDS ORDERED: ALUM355S5 PO (21:09)
[2023-01-19 21:28] VITALS: BP 123/76
--- NOTE | 2023-01-19 21:28 | NUR ---
Patient discharged with v/s stable. Written and verbal after care instructions given and explained. Patient alert, oriented and verbalized understanding of instructions. Ambulatory with steady gait. All questions addressed prior to discharge. ID band removed. Patient advised to follow up with PMD. Rx of MAG HYDROX DICYCOLMINE ONDANSETRON given. Patient educated on indication of medication including possible reaction and side effects. Opportunity to ask questions provided and answered.
== END 2023-01-19 21:28 | disposition home or self-care (01) ==
LOC: MED 19:33
DX: R10.84 Generalized abdominal pain (principal); R11.0 Nausea; J45.909 Unspecified asthma, uncomplicated; Z79.1 Long term (current) use of non-steroidal anti-inflammatories (NSAID); Z79.82 Long term (current) use of aspirin; Z88.8 Allergy status to other drugs, medicaments and biological substances; Z79.899 Other long term (current) drug therapy
CPT/HCPCS: 36415; 80053; 81001; 81025; 83690; 85025; 99284; Q0162

== ENCOUNTER 2023-04-26 02:24 | Emergency (ER) | payer OTHER ==
[~2023-04-26] VITALS: Ht 162.6 cm; Wt 83.9 kg
[~2023-04-26 02:24] MED LIST changes: +ALUM355S5 PO; +BEN10 PO; +ONDA-188 SL
[2023-04-26 02:25] VITALS: BP 133/90
--- NOTE | 2023-04-26 02:25 | NUR ---
to bed ambulatory
--- NOTE | 2023-04-26 02:40 | NUR ---
32 Y/O F FROM HOME PRESENTS WITH WHEEZING X3DAYS AND ITCHING. PT STATED SHE TRIED BREATHING TREATMENT AT HOME WITH NO RELIEF ALONG WITH USE OF INHALER WITH NO RELIEF. PT STATED SHE HAS UTI SYMPTOMS, 2/10 PAIN WHEN URINATIONG WITH FREQUENCY AND DRIBBLING XLAST NIGHT. PT IS AMBULATORY, A&OX4, SKIN INTACT. PMH-PT DENIES ALLERGIES-SURGICAL TAPE
--- NOTE | 2023-04-26 02:40 | NUR ---
PT AMBULATORY TO RESTROOM WITHOUT ASSISTANCE
[2023-04-26] MEDS ORDERED: predniSONE 20 MG TAB PO ONE (02:45)
[2023-04-26] MEDS ORDERED: ALBUTEROL SULFATE/IPRATROPIU 3 ML SOL IH ONE ×2 (02:45→03:35)
[2023-04-26 02:56] LABS: APPEARANCE,URINE SL CLOUDY (CLEAR); BILIRUBIN,URINE NEGATIVE (NEGATIVE); BLOOD, URINE TRACE-I (NEGATIVE); COLOR,URINE YELLOW (YELLOW); LEUKOCYTE ESTERASE ,URINE NEGATIVE (NEGATIVE); NITRITE, URINE NEGATIVE (NEGATIVE); PH,URINE 5.5 (5.0-9.0); UGLUCOSE NEGATIVE (NEGATIVE)
[2023-04-26 03:04] LABS: RBC,URINE 0-5 /HPF (0-5)
[2023-04-26] MEDS ORDERED: ALBU0.0912 IH (03:37)
[2023-04-26] MEDS ORDERED: CEPH-588 PO (03:37)
[2023-04-26] MEDS ORDERED: PRED20TA5 PO (03:37)
--- NOTE | 2023-04-26 03:45 | NUR ---
RT BEDSIDE WITH SECOND TREATMENT
[2023-04-26 03:46] VITALS: BP 128/80
--- NOTE | 2023-04-26 03:56 | NUR ---
Patient discharged with v/s stable. Written and verbal after care instructions given and explained. Patient alert, oriented and verbalized understanding of instructions. Ambulatory with steady gait. All questions addressed prior to discharge. ID band removed. Patient advised to follow up with PMD. Rx of ALBUTEROL SULFATE, KEFLEX, PREDNISONE given. Opportunity to ask questions provided and answered. DR. STEINBERG'S ORDERS REINFORCED
[2023-04-26] MEDS ORDERED: PRON INH (04:42)
== END 2023-04-26 03:56 | disposition home or self-care (01) ==
LOC: MED 02:24
DX: J45.901 Unspecified asthma with (acute) exacerbation (principal); N39.0 Urinary tract infection, site not specified; Z79.899 Other long term (current) drug therapy; Z79.2 Long term (current) use of antibiotics; Z79.1 Long term (current) use of non-steroidal anti-inflammatories (NSAID); Z88.6 Allergy status to analgesic agent; Z88.1 Allergy status to other antibiotic agents; Z88.8 Allergy status to other drugs, medicaments and biological substances; Z91.048 Other nonmedicinal substance allergy status
CPT/HCPCS: 71045; 81001; 81025; 87086; 87491; 94640; 99284; J7512; Q0092

== ENCOUNTER 2023-05-01 22:47 | Emergency (ER) | payer OTHER ==
[~2023-05-01] VITALS: Ht 162.6 cm; Wt 83.9 kg
[~2023-05-01 22:47] MED LIST changes: +ALBU0.0912 IH; +CEPH-588 PO
[2023-05-01 22:55] VITALS: BP 127/90
--- NOTE | 2023-05-01 22:58 | NUR ---
TO LOBBY A/W BED AMBULATORY
--- NOTE | 2023-05-02 01:15 | NUR ---
Nuris nunez in [facility] - 05/02/23 at 0123 by [email or web address] pt ambulated to bed 09
--- NOTE | 2023-05-02 01:15 | NUR ---
PT CALLED BY EMT OUTSIDE AND IN LOBBY WITH NO ANSWER.
--- NOTE | 2023-05-02 01:20 | NUR ---
PT CALLED BY EMT OUTSIDE AND IN LOBBY WITH NO ANSWER.
--- NOTE | 2023-05-02 01:25 | NUR ---
PT CALLED BY EMT OUTSIDE AND IN LOBBY WITH NO ANSWER. PT LWBS
== END 2023-05-02 01:25 | disposition left against medical advice (07) ==
LOC: MED 22:47
DX: H02.846 Edema of left eye, unspecified eyelid (principal); H02.843 Edema of right eye, unspecified eyelid; L29.9 Pruritus, unspecified; R06.2 Wheezing; Z53.21 Procedure and treatment not carried out due to patient leaving prior to being seen by health care provider
CPT/HCPCS: 99281

== ENCOUNTER 2023-06-05 18:21 | Emergency (ER) | payer OTHER ==
[~2023-06-05] VITALS: Ht 160 cm; Wt 86.2 kg
[2023-06-05 18:29] VITALS: BP 127/97; PULSE 103; RESP 22; TEMP 97.7; O2SAT 97
[2023-06-05] MEDS ORDERED: FAMOTIDINE 20 MG TAB PO ONE (19:00)
[2023-06-05] MEDS ORDERED: DEXAMETHASONE 10 MG/ML VIAL IM ONE (19:00)
[2023-06-05] MEDS ORDERED: diphenhydrAMINE 50 MG CAP PO ONE (19:00)
[2023-06-05] MEDS ORDERED: BEN50 PO (20:10)
[2023-06-05] MEDS ORDERED: PRED20TA5 PO (20:10)
[2023-06-05] MEDS ORDERED: EPIN1KIT31 IM (20:10)
--- NOTE | 2023-06-05 20:12 | NUR ---
Patient being evaluated by physician at bedside.
[2023-06-05 21:30] VITALS: BP 127/97; PULSE 103; RESP 22; TEMP 97.7; O2SAT 97
--- NOTE | 2023-06-05 21:56 | NUR ---
Patient discharged with v/s stable. Written and verbal after care instructions given and explained. Patient alert, oriented and verbalized understanding of instructions. Ambulatory with steady gait. All questions addressed prior to discharge. ID band removed. Patient advised to follow up with PMD. Rx of benadryl, epipen, deltasone given. Opportunity to ask questions provided and answered.
== END 2023-06-05 21:56 | disposition home or self-care (01) ==
LOC: MED 18:21
DX: R21 Rash and other nonspecific skin eruption (principal); T78.49XA Other allergy, initial encounter; J45.909 Unspecified asthma, uncomplicated; Z79.1 Long term (current) use of non-steroidal anti-inflammatories (NSAID); Z79.82 Long term (current) use of aspirin; Z88.8 Allergy status to other drugs, medicaments and biological substances; Z79.899 Other long term (current) drug therapy; X58.XXXA Exposure to other specified factors, initial encounter
CPT/HCPCS: 96372; 99283; J1100; Q0163

== ENCOUNTER 2023-07-24 18:31 | Emergency (ER) | payer OTHER ==
[~2023-07-24] VITALS: Ht 162.6 cm; Wt 89.8 kg
[~2023-07-24 18:31] MED LIST changes: +BEN50 PO
[2023-07-24 18:46] VITALS: BP 133/84; PULSE 103; RESP 20; TEMP 97.9; O2SAT 96
[2023-07-24 21:05] LABS: FLU A ANTIGEN negative (NEGATIVE); FLU B ANTIGEN NEGATIVE (NEGATIVE)
[2023-07-24] MEDS ORDERED: ALBUTEROL SULFATE/IPRATROPIU 3 ML SOL IH ONE (21:20)
[2023-07-24 21:30] VITALS: PULSE 96; RESP 18; O2SAT 96
[2023-07-24 21:40] LABS: BASOPHILS # (AUTO) 0.1 K/uL (0.00-0.22); EOSINOPHILS # (AUTO) 0.6 K/uL (0-0.4); HEMATOCRIT 42.1 % (36-48); HEMOGLOBIN 14.1 g/dL (12.0-16.0); LYMPHOCYTES # (AUTO) 4.2 K/uL (2.5-16.5); MEAN CORPUSCULAR HEMOGLOBIN 29 pg (27-31); MEAN CORPUSCULAR HGB CONC 34 g/dL (33-37); MONOCYTES # (AUTO) 1.1 K/uL (0.8-1.0); MONOCYTES % (AUTO) 8.8 % (1.7-9.3); NEUTROPHILS # (AUTO) 6.3 K/uL (1.8-7.7); NEUTROPHILS % (AUTO) 51.2 % (42.2-75.2); PLATELET COUNT (AUTO) 318 K/uL (140-450); RED BLOOD CELL COUNT(AUTO) 4.96 MIL/uL (4.20-5.40); RED CELL DISTRIBUTION WIDTH 14.5 % (11.6-13.7); WHITE BLOOD COUNT (AUTO) 12.3 K/uL (4.8-10.8)
[2023-07-24] MEDS ORDERED: FLUT1BLS8 IH (22:15)
[2023-07-24] MEDS ORDERED: PRED20TA5 PO (22:15)
[2023-07-24] MEDS ORDERED: GUAI118L81 PO (22:15)
[2023-07-24] MEDS ORDERED: AZIT250T4 PO (22:15)
[2023-07-24] MEDS ORDERED: SUD30 PO (22:15)
[2023-07-24] MEDS ORDERED: ALBU0.0912 INH (22:15)
== END 2023-07-24 22:27 | disposition home or self-care (01) ==
LOC: MED 18:31
DX: J20.9 Acute bronchitis, unspecified (principal); Z20.822 Contact with and (suspected) exposure to COVID-19; J45.901 Unspecified asthma with (acute) exacerbation; Z79.1 Long term (current) use of non-steroidal anti-inflammatories (NSAID); Z88.5 Allergy status to narcotic agent; Z88.8 Allergy status to other drugs, medicaments and biological substances; Z79.82 Long term (current) use of aspirin; Z79.899 Other long term (current) drug therapy
CPT/HCPCS: 36415; 71045; 85025; 94640; 99284

== ENCOUNTER 2023-12-22 10:54 | Emergency (ER) | payer MEDICAID, OTHER ==
[~2023-12-22] VITALS: Ht 160 cm; Wt 92.5 kg
[~2023-12-22 10:54] MED LIST changes: -ALUM355S5 PO; +AZIT250T4 PO; +FLUT1BLS8 IH; +GUAI118L81 PO; +MAG-43 PO; +SUD30 PO
[2023-12-22 10:56] VITALS: BP 143/82; PULSE 108; RESP 24; TEMP 98.5; O2SAT 100
[2023-12-22] MEDS ORDERED: ALBUTEROL SULFATE/IPRATROPIU 3 ML SOL IH ONE ×3 (11:07→11:10)
[2023-12-22] MEDS ORDERED: predniSONE 20 MG TAB PO ONE (11:10)
[2023-12-22 11:12] VITALS: PULSE 98; RESP 18; O2SAT 98
[2023-12-22] MEDS ORDERED: ACETAMINOPHEN EXTRA STRENGTH 500 MG TAB PO ONE (11:25)
[2023-12-22] MEDS ORDERED: PRED20TA5 PO (12:56)
[2023-12-22] MEDS ORDERED: AZIT250T4 PO (12:56)
[2023-12-22] MEDS ORDERED: PRON INH (13:14)
[2023-12-22] MEDS ORDERED: ALBU0.0912 IH (13:14)
[2023-12-22 13:15] VITALS: BP 111/76; PULSE 96; RESP 18; TEMP 98; O2SAT 99
== END 2023-12-22 13:17 | disposition home or self-care (01) ==
LOC: MED 10:54
DX: J45.901 Unspecified asthma with (acute) exacerbation (principal); Z79.899 Other long term (current) drug therapy
CPT/HCPCS: 71045; 94640; 99283; J7512; Q0092

== ENCOUNTER 2024-01-11 22:37 | Emergency (ER) | payer MEDICAID ==
[~2024-01-11] VITALS: Ht 160 cm; Wt 92.5 kg
[2024-01-11 22:48] VITALS: BP 142/91; PULSE 88; RESP 20; TEMP 97.4; O2SAT 97
[2024-01-11 23:37] LABS: APPEARANCE,URINE CLEAR (CLEAR); BILIRUBIN,URINE NEGATIVE (NEGATIVE); BLOOD, URINE 1+ (NEGATIVE); COLOR,URINE YELLOW (YELLOW); LEUKOCYTE ESTERASE ,URINE NEGATIVE (NEGATIVE); NITRITE, URINE NEGATIVE (NEGATIVE); PROTEIN,URINE NEGATIVE (NEGATIVE); UGLUCOSE NEGATIVE (NEGATIVE); UROBILINOGEN,URINE 0.2 EU/dL (0.2 - 1)
[2024-01-12 00:11] LABS: BACTERIA,URINE OCCASSIONAL /HPF (None Seen); RBC,URINE 0-5 /HPF (0-5); SQUAMOUS EPITHELIAL CELL,UR 0-3 (FEW) /LPF (0-3 (FEW)); WBC,URINE 0-5 /HPF (0-5)
[2024-01-12 02:00] VITALS: O2SAT 97
[2024-01-12 02:41] LABS: BASOPHILS # (AUTO) 0.1 K/uL (0.00-0.22); BASOPHILS % (AUTO) 0.3 % (0.0-2.0); HEMATOCRIT 38.3 % (36-48); HEMOGLOBIN 12.9 g/dL (12.0-16.0); LYMPHOCYTES # (AUTO) 1.8 K/uL (2.5-16.5); LYMPHOCYTES % (AUTO) 11.2 % (20.5-51.1); MEAN CORPUSCULAR HEMOGLOBIN 29 pg (27-31); MEAN CORPUSCULAR HGB CONC 34 g/dL (33-37); MEAN CORPUSCULAR VOLUME 85.5 fL (80-94); MONOCYTES # (AUTO) 1.3 K/uL (0.8-1.0); MONOCYTES % (AUTO) 7.9 % (1.7-9.3); NEUTROPHILS # (AUTO) 13.1 K/uL (1.8-7.7); PLATELET COUNT (AUTO) 336 K/uL (140-450); RED BLOOD CELL COUNT(AUTO) 4.48 MIL/uL (4.20-5.40); RED CELL DISTRIBUTION WIDTH 14.2 % (11.6-13.7); WHITE BLOOD COUNT (AUTO) 16.2 K/uL (4.8-10.8)
[2024-01-12 02:56] LABS: ALBUMIN 3.4 g/dL (3.4-5.0); ANION GAP 13.7 (8-16); CALCIUM 9.3 mg/dL (8.5-10.1); CARBON DIOXIDE 25.2 mmol/L (21-32); CREATININE 0.6 mg/dL (0.6-1.3); POTASSIUM 3.9 mmol/L (3.5-5.1); TOTAL BILIRUBIN 0.3 mg/dL (0.0-1.0); TOTAL PROTEIN, SERUM 8.1 g/dL (6.4-8.2)
[2024-01-12 03:00] LABS: NEUTROPHILS % (AUTO) 80.6 % (42.2-75.2)
== END 2024-01-12 07:05 | disposition home or self-care (01) ==
LOC: MED 22:37
DX: N83.202 Unspecified ovarian cyst, left side (principal); J45.909 Unspecified asthma, uncomplicated; Z79.899 Other long term (current) drug therapy; Z88.6 Allergy status to analgesic agent; Z88.1 Allergy status to other antibiotic agents
CPT/HCPCS: 36415; 76856; 80053; 81001; 81025; 83690; 85025; 93976; 99284; Q0092